=== PATIENT | female | born 1985 | race Caucasian/White ===

== ENCOUNTER 2019-09-30 23:12 | Emergency (ER) | payer OTHER ==
[~2019-09-30] VITALS: Ht 167.6 cm; Wt 122.5 kg
[~2019-09-30 23:12] MED LIST: APAP500; COLACE 100 MG100 MG PO; DERMOPLAST SPRA56 ML; IBUPROFEN 800800 M1; IBUPROFEN 800800 M1 PO; IRON325 PO; K-DUR 20 MEQ T20 MEQ PO; LANOLIN56 GM; LOPERAMIDE 2 MG2 M1 PO; PRENATAL; PRENATAL MULTI1 EAC2; TUCKS MEDICATE1 EAC1; ZOFRAN4 MG
[2019-09-30] MEDS ORDERED: SERTRALINE HCL50 MG PO (23:54)
[2019-09-30] MEDS ORDERED: ZYRTEC10 M5 PO (23:54)
[2019-09-30] MEDS ORDERED: LIPITOR10 MG PO (23:54)
[2019-10-01 01:24] VITALS: BP 124/75
== END 2019-10-01 01:24 | disposition home or self-care (01) ==
LOC: M.ERS 23:12
DX: S61.215A Laceration without foreign body of left ring finger without damage to nail, initial encounter (principal); Z90.710 Acquired absence of both cervix and uterus; Z90.89 Acquired absence of other organs; Z91.040 Latex allergy status; Z88.5 Allergy status to narcotic agent; W26.0XXA Contact with knife, initial encounter; Y93.89 Activity, other specified; Y92.89 Other specified places as the place of occurrence of the external cause; Y99.8 Other external cause status

== ENCOUNTER 2020-10-11 13:31 | Emergency (ER) | payer OTHER ==
[~2020-10-11] VITALS: Ht 167.6 cm; Wt 124.7 kg
[~2020-10-11 13:31] MED LIST changes: +LIPITOR10 MG PO; +SERTRALINE HCL50 MG PO; +ZYRTEC10 M5 PO
[2020-10-11] MEDS ORDERED: NEXIUM 40 MG CA40 M1 PO (13:46)
[2020-10-11 14:15] LABS: ABSOLUTE BASOPHILS 0.1 thou/uL (0.0-0.2); ABSOLUTE EOSINOPHILS 0.1 thou/uL (0.0-0.7); ABSOLUTE LYMPHOCYTES 1.7 thou/uL (0.8-5.3); ABSOLUTE MONOCYTES 0.5 thou/uL (0.0-1.2); ABSOLUTE NEUTROPHILS 5.8 thou/uL (1.6-8.1); BASOPHILS 0.6 %; EOSINOPHILS 1.4 %; HEMATOCRIT 39.9 % (37.0-47.0); HEMOGLOBIN 13.7 gm/dL (12.0-15.0); LYMPHOCYTES 20.9 %; MCH 28.9 pg (26.0-34.0); MCHC 34.4 g/dL (28.0-37.0); MONOCYTES 6.5 %; MPV 7.3 fl. (7.2-11.1); NUCLEATED RBCS 0 /100WBC; PLATELET COUNT* 242 thou/uL (150-400); POLYS 70.6 %; RBC 4.75 mil/uL (4.20-5.00); RDW-CV 13.2 % (10.5-14.5); WBC 8.3 thou/uL (4.0-11.0)
[2020-10-11 14:23] LABS: CREATININE 0.9 mg/dL (0.6-1.3); POTASSIUM 3.6 mmol/L (3.5-5.1)
[2020-10-11 14:27] LABS: ALBUMIN 3.8 g/dL (3.4-5.0); TOTAL BILIRUBIN 0.3 mg/dL (<0.1-1.0); TOTAL PROTEIN 7.3 g/dL (6.4-8.2)
[2020-10-11 15:19] LABS: URINE BILIRUBIN NEGATIVE (Negative); URINE BLOOD NEGATIVE (Negative); URINE CLARITY CLEAR; URINE COLOR YELLOW; URINE GLUCOSE-RANDOM NEGATIVE (Negative); URINE KETONES NEGATIVE (Negative); URINE LEUKOCYTES-REFLEX NEGATIVE (Negative); URINE NITRITE-REFLEX NEGATIVE (Negative); URINE PROTEIN NEGATIVE (Negative); URINE UROBILINOGEN 0.2 E.U./dl (0.2-1.0)
[2020-10-11 16:00] VITALS: BP 137/81
--- NOTE | 2020-10-12 15:07 | EKG ---
[place] [address] ELECTROCARDIOGRAM REPORT Name: TIFFANIE VANESSA Room: [facility]#: [id number] Admission: 10/11/20 Attend Phys: Discharge: 10/11/20 Date of : 87 Date of Service: 10/11/20 1417 Report #: [id number] THIS REPORT FOR: //name// [facility] ED Test Date: 2020-10-11 Test Time: 14:17:10 Pat Name: TIFFANIE VANESSA Department: Room: Gender: F [employer] [place]: : 1985 Requested By: Kaleb Hodgson Order Number: [id number] MD: Ari Landa Measurements Intervals [place] Rate: 84 P: 29 WV: 177 QRS: 40 QRSD: 84 T: 31 QT: 357 QTc: 422 Interpretive Statements Sinus rhythm No previous ECG available for comparison Electronically Signed On 10-12-2020 15:07:17 [employer] by Ari Landa [email or web address] <ELECTRONICALLY SIGNED> By: Ari Landa MD, [facility] 10/12/20 1507 1417 141 Ari Landa MD, FACC /EPI
== END 2020-10-11 16:00 | disposition home or self-care (01) ==
LOC: M.ERS 13:31
PROVIDERS: Physician Assistant
DX: R55 Syncope and collapse (principal); Z90.710 Acquired absence of both cervix and uterus; Z90.89 Acquired absence of other organs; Z79.899 Other long term (current) drug therapy; Z88.2 Allergy status to sulfonamides; Z88.5 Allergy status to narcotic agent; Z88.8 Allergy status to other drugs, medicaments and biological substances; Z91.040 Latex allergy status; Z20.828 Contact with and (suspected) exposure to other viral communicable diseases

== ENCOUNTER → 2020-11-24 | Outpatient (CLI) | payer OTHER ==
[~2020-11-24] MED LIST changes: +NEXIUM 40 MG CA40 M1 PO
--- NOTE | 2020-11-24 11:53 | 2DMMODE ---
[place] [address] 2 D/M-MODE ECHOCARDIOGRAM Name: TIFFANIE VANESSA Room: [facility]#: [id number] Admission: 11/24/20 Attend Phys: Pilo Christensen MD Discharge: Date of : 87 Date of Service: 11/24/20 1153 Report #: [id number] THIS REPORT FOR: cc: David Alcantar MD, Dean L. MD Liston, Michael J. MD [facility] ~ APPROVED REPORT Study performed: 11/24/2020 08:40:47 EXAM: Comprehensive 2D, Doppler, and color-flow Echocardiogram Patient Location: Out-Patient BSA: 2.28 HR: 82 bpm BP: 120/70 mmHg Other Information Study Quality: Fair Indications Syncope 2D Dimensions IVSd: 11.16 (7-11mm) LVOT Diam: 20.51 (18-24mm) LVDd: 40.08 mm PWd: 10.15 (7-11mm) Ascending Ao: 26.05 (22-36mm) LVDs: 27.97 (25-40mm) Aortic Root: 24.38 mm Volumes Left Atrial Volume (Systole) LA ESV Index: 14.60 mL/m2 Aortic Valve AoV Peak Diogenes.: 1.48 m/s AO Peak Gr.: 8.75 mmHg LVOT Max P.21 mmHg AO Mean Gr.: 4.13 mmHg LVOT Mean P.98 mmHg LVOT Max V: 1.25 m/s AO V2 VTI: 24.67 cm LVOT Mean V: 0.79 m/s ASHLEY (VTI): 3.53 cm2 LVOT V1 VTI: 26.36 cm Mitral Valve E/A Ratio: 1.55 [place] [address] 2 D/M-MODE ECHOCARDIOGRAM Name: OTFVASILETIFFANIE ONUR Room: [facility]#: [id number] Admission: 11/24/20 Attend Phys: Pilo Christensen MD Discharge: Date of : 87 Date of Service: 11/24/20 1153 Report #: [id number] MV Decel. Time: 213.41 ms MV E Max Diogenes.: 0.95 m/s MV PHT: 61.89 ms MVA (PHT): 3.55 cm2 TDI E/Lateral E': 5.59 E/Medial E': 7.31 Medial E' Diogenes.: 0.13 m/s Lateral E' Diogenes.: 0.17 m/s Pulmonary Valve PV Peak Diogenes.: 1.04 m/s PV Peak Gr.: 4.34 mmHg Left Ventricle The left ventricle is normal size. There is normal LV segmental wall motion. There is normal left ventricular wall thickness. Left ventricular systolic function is normal. LVEF is 60-65%. The left ventricular diastolic function is normal. Right Ventricle The right ventricle is normal size. The right ventricular systolic function is normal. Atria The left atrium size is normal. The right atrium size is normal. Aortic Valve The aortic valve is normal in structure. No aortic regurgitation is present. There is no aortic valvular stenosis. Mitral Valve The mitral valve is normal in structure. There is no mitral valve regurgitation noted. No evidence of mitral valve stenosis. Tricuspid Valve The tricuspid valve is normal in structure. There is no tricuspid valve regurgitation noted. Pulmonic Valve The pulmonary valve is normal in structure. There is no pulmonic valvular regurgitation. Great Vessels The aortic root is normal in size. IVC is normal in size and collapses >50% [place] [address] 2 D/M-MODE ECHOCARDIOGRAM Name: TIFFANIE VANESSA Room: [facility]#: [id number] Admission: 11/24/20 Attend Phys: Pilo Christensen MD Discharge: Date of : 87 Date of Service: 11/24/20 1153 Report #: [id number] Pericardium There is no pericardial effusion. <Conclusion> The left ventricle is normal size. There is normal left ventricular wall thickness. Left ventricular systolic function is normal. LVEF is 60-65%. The left ventricular diastolic function is normal. IVC is normal in size and collapses >50% with inspiration. <ELECTRONICALLY SIGNED> By: Ari Landa MD, FACC 11/24/20 1153 1153 1153 Ari Landa MD, FACC /INF
== END ==
LOC: M.CRD 11-02 11:00
PROVIDERS: ATTEND Internal Medicine Cardiovascular Disease
DX: R55 Syncope and collapse (principal)

== ENCOUNTER → 2020-12-28 | Outpatient (CLI) | payer OTHER ==
--- NOTE | ~2020-12-28 | EEG ---
[address] [address] EEG STUDY REPORT Name: TIFFANIE VANESSA Room: [facility]#: [id number] Admission: 12/28/20 Attend Phys: Amilcar Jones MD Discharge: Date of : 87 Report #: [id number] THIS REPORT FOR: cc: David Alcantar MD, Dean L. MD Khosla,Amilcar Layton MD ~ DATE OF SERVICE: 12/28/2020 This patient is being evaluated for an episode of syncope. EEG was done by placing the electrode by standard 10-20 system of electrode placement. Both referential and sequential montages were used for recording. Background activity in this patient's EEG is about 10 Hz and 15 microvolt. The patient went to sleep that is associated with bilateral slowing and vertex sharp waves. Photic stimulation is unremarkable. Throughout the record, no active epileptiform activity was noticed. IMPRESSION: This patient's EEG is within normal limits. No active epileptiform activity was noticed. Thank you very much for this referral. By: [id number] Jones MD /nt
== END ==
LOC: M.CRD 12-14 13:30 → M.MRI 12-14 14:30 → M.CRD 12-21 13:30 → M.MRI 11:02
PROVIDERS: ATTEND Psychiatry & Neurology Neuromuscular Medicine
DX: R55 Syncope and collapse (principal)